=== PATIENT | female | born 1975 | race Two or more races ===

== ENCOUNTER 2016-12-17 21:16 | Emergency (ER) | payer OTHER ==
[~2016-12-17] VITALS: Ht 160 cm; Wt 77.6 kg
[2016-12-17 21:22] VITALS: BP 105/71
--- NOTE | 2016-12-17 22:00 | NUR ---
PT AMBULATORY TO ER BED 6 PT STATES DIFFICULTY SWALLOWING X1 MOS, DENIES SOB SEEN BY PCP AND TOLD TO GET AN US. PT ALSO STATES IT BEGAN AFTER HAVING THE FLU, PT SPEAKING IN FULL SENTENCES AND ABLE TO SIP ON WATER. RR EVEN AND UNLABORED. NO SOB NOTED. NAD NOTED. NO NVD AT THIS TIME. PT NOT DIAPHORETIC. PT GOWNED AND WAITING FOR MD SHEPHERD.
[2016-12-17] MEDS ORDERED: LIDOCAINE VISCOUS 2% UD 15 ML UDC ONE (22:36)
[2016-12-17] MEDS: LIDOCAINE VISCOUS 2% UD 15 ML UDC MM ONE (22:40)
== END 2016-12-17 22:53 | disposition home or self-care (01) ==
LOC: ER 21:20
DX: R13.10 Dysphagia, unspecified (principal)
CPT/HCPCS: 99282; A4606; Z7610